=== PATIENT | male | born 1960 | race Caucasian/White ===

== ENCOUNTER 2022-10-04 08:05 | Observation (INO) ==
[~2022-10-04 08:05] MED LIST: Buffered Lidocaine 1% SYRIN 1 ml INTRADERM ONE; Lactated Ringers 1000 ml BAG 1,000 ML IV SCH
[2022-10-04] MEDS ORDERED: ceFAZolin 2 GM PREMIX 2 GM/50 ML BAG ONE (08:21)
[2022-10-04] MEDS ORDERED: Midazolam 5 mg/5 ml VIAL 1 mg/ml 5 ml VIAL (5 mg) ONE (10:13)
[2022-10-04] MEDS ORDERED: HYDROmorphone 1 MG/1 ML SYRINGE IV PRN (10:54)
[2022-10-04] MEDS ORDERED: Naloxone 0.4 mg VIAL 0.4 mg/ml 1 ml VIAL IV PRN (10:54)
[2022-10-04] MEDS ORDERED: fentaNYL 100 mcg/2 ml 50 MCG/ML VIAL ONE (11:01)
[2022-10-04] MEDS ORDERED: Midazolam 2 mg/2 ml VIAL 1 mg/ml 2 ml VIAL (2 mg) ONE (11:27)
[2022-10-04] MEDS ORDERED: Lidocaine 2% PF 5 ML VIAL ONE (11:42)
[2022-10-04] MEDS ORDERED: Ondansetron 4 mg VIAL 2 MG/ML 2 ml VIAL ONE (12:33)
[2022-10-04] MEDS ORDERED: Dexamethasone IV 4 MG/ML VIAL 1 ml VIAL ONE (12:33)
[2022-10-04] MEDS ORDERED: Acetaminophen IV 1 GM/100ML 1,000 MG/100 ML BAG IV ONE (13:54)
[2022-10-04] MEDS ORDERED: Magnesium Hydroxide LIQ 30 ML UDC PO PRN (14:20)
[2022-10-04] MEDS ORDERED: Morphine 2 MG/ML SYRINGE IV PRN (14:20)
[2022-10-04] MEDS ORDERED: Ondansetron ODT 4 mg TAB 4 MG TAB PO PRN (14:20)
[2022-10-04] MEDS ORDERED: Ondansetron 4 mg VIAL 2 MG/ML 2 ml VIAL IV PRN (14:20)
[2022-10-04] MEDS ORDERED: Lactulose 30 ml UDC PO PRN (14:20)
[2022-10-04] MEDS ORDERED: Lactated Ringers 1000 ml BAG 1,000 ML IV SCH (15:00)
[2022-10-04 19:54] VITALS: BP 120/67
[2022-10-04] MEDS ORDERED: ceFAZolin 1 GM ADVAN 1 GM in NS 0.9% 50 ML 50 ML IVPB SCH (20:00)
[2022-10-04] MEDS ORDERED: Magnesium Hydroxide LIQ 30 ML UDC PO SCH (21:00)
[2022-10-05] MEDS ORDERED: Vitamin THERAPEUTIC TAB PO SCH (09:00)
== END 2022-10-04 21:00 | disposition home or self-care (01) ==
LOC: INTOOBSV 08:05 → AA 08:05 → SSU 15:59
PROVIDERS: ADMIT Orthopaedic Surgery Adult Reconstructive Orthopaedic Surgery; ATTEND Orthopaedic Surgery Adult Reconstructive Orthopaedic Surgery

== ENCOUNTER 2024-01-14 05:32 | Observation (INO) ==
[~2024-01-14 05:32] MED LIST changes: -Buffered Lidocaine 1% SYRIN 1 ml INTRADERM ONE; -Lactated Ringers 1000 ml BAG 1,000 ML IV SCH; +Naloxone 0.4 mg VIAL 0.4 mg/ml 1 ml VIAL IV PRN; +fentaNYL 100 mcg/2 ml 50 MCG/ML VIAL IV PRN
[2024-01-14] MEDS ORDERED: ceFAZolin 2 GM PREMIX 2 GM/50 ML BAG ONE (05:46)
[2024-01-14] MEDS ORDERED: Tranexamic Acid 1 GM/100ML BAG 2,000 MG/200 ML BAG IV ONE (05:46)
[2024-01-14 06:04] LABS: Rapid COVID-19 Molecular Undetected (Undetected)
[2024-01-14] MEDS ORDERED: Propofol 10 MG/ML 20 ML BTL ONE ×2 (06:52→09:33)
[2024-01-14] MEDS ORDERED: Midazolam 2 mg/2 ml VIAL 1 mg/ml 2 ml VIAL (2 mg) ONE (06:52)
[2024-01-14] MEDS ORDERED: Lidocaine 2% PF 5 ML VIAL ONE (06:52)
[2024-01-14] MEDS ORDERED: Phenylephrine IV 10 MG/ML 1 ml VIAL ONE (06:52)
[2024-01-14] MEDS ORDERED: fentaNYL 100 mcg/2 ml 50 MCG/ML VIAL ONE (06:52)
[2024-01-14] MEDS ORDERED: Acetaminophen IV 1 GM/100ML 1,000 MG/100 ML BAG IV ONE (08:02)
[2024-01-14] MEDS ORDERED: ROPIVACAINE 5 MG/ML 30 ML BTL (0.5%) ONE (08:41)
[2024-01-14] MEDS ORDERED: Lactulose 30 ml UDC PO PRN (08:49)
[2024-01-14] MEDS ORDERED: Ondansetron ODT 4 mg TAB 4 MG TAB PO PRN (08:49)
[2024-01-14] MEDS ORDERED: Morphine 2 MG/ML SYRINGE IV PRN (08:49)
[2024-01-14] MEDS ORDERED: Ondansetron 4 mg VIAL 2 MG/ML 2 ml VIAL IV PRN (08:49)
[2024-01-14] MEDS ORDERED: Magnesium Hydroxide LIQ 30 ML UDC PO PRN (08:49)
[2024-01-14] MEDS: Lactated Ringers 1000 ml BAG 1,000 ML IV SCH ×2 (09:41→12:22)
[2024-01-14] MEDS: Buffered Lidocaine 1% SYRIN 1 ml INTRADERM ONE (09:41)
[2024-01-14] MEDS ORDERED: Bupivacaine-MPF SPINAL 7.5 MG/ML - 2ML AMP ONE (09:54)
[2024-01-14] MEDS: Vitamin THERAPEUTIC TAB PO SCH (10:28)
[2024-01-14] MEDS: Magnesium Hydroxide LIQ 30 ML UDC PO SCH (10:28)
[2024-01-14] MEDS: ceFAZolin 1 GM ADVAN 1 GM in NS 0.9% 50 ML 50 ML IVPB SCH ×2 (10:28→15:42)
[2024-01-14 14:22] VITALS: BP 135/90
== END 2024-01-14 16:50 | disposition home or self-care (01) ==
LOC: AA 05:32 → INTOOBSV 05:32 → SSU 08:49
PROVIDERS: ADMIT Orthopaedic Surgery Adult Reconstructive Orthopaedic Surgery; ATTEND Orthopaedic Surgery Adult Reconstructive Orthopaedic Surgery